=== PATIENT | male | born 2000 | race Caucasian/White ===

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

== ENCOUNTER 2024-04-13 00:55 | Emergency (ER) | payer OTHER ==
[~2024-04-13] VITALS: Ht 185.4 cm; Wt 103.7 kg
[2024-04-13] MEDS: fentaNYL/PF 50MCG/1 ML 2ML syringe IV ONE (01:37)
[2024-04-13] MEDS: ketamine 10mg/ml 20ml inj vial ONE (02:13)
[2024-04-13] MEDS: ketamine 10mg/ml 20ml inj vial IV ONE (02:14)
[2024-04-13] MEDS: ondansetron/PF 4mg/2ml inj IV ONE (02:34)
[2024-04-13] MEDS: proCHLORperazine 10 MG/2 ml inj IV ONE (02:50)
[2024-04-13] MEDS ORDERED: proCHLORperazine 10 MG/2 ml inj IV ONE (02:50)
[2024-04-13 03:31] VITALS: BP 121/80; PULSE 88; RESP 14; TEMP 97.7; O2SAT 99
== END 2024-04-13 03:25 | disposition home or self-care (01) ==
LOC: ER 00:56
DX: S43.005A Unspecified dislocation of left shoulder joint, initial encounter (principal); W19.XXXA Unspecified fall, initial encounter; Y93.89 Activity, other specified; Y92.89 Other specified places as the place of occurrence of the external cause; Y99.8 Other external cause status
CPT/HCPCS: 23650; 73030; 96374; 96375; 99152; 99285; J0780; J2405; J3010; 94760; A4565; A4620; A6449